=== PATIENT | female | born 1980 | race Two or more races ===

== ENCOUNTER 2023-09-14 02:40 | Emergency (ER) | payer MEDICAID ==
[~2023-09-14] VITALS: Ht 172.7 cm; Wt 85.0 kg
[2023-09-14] MEDS ORDERED: ketorolac trometh inj. 60 MG/2 ML VIAL IM ONE (03:40)
[2023-09-14] MEDS ORDERED: ondansetron 4mg rapidly disintigrating tab PO ONE (03:40)
[2023-09-14] MEDS ORDERED: HYDROcodone/acetaminophen 5mg/325mg tablet PO ONE (03:40)
[2023-09-14] MEDS ORDERED: orphenadrine citrate 60mg/2ml inj. IM ONE (03:40)
[2023-09-14] MEDS ORDERED: HYDR-3965 PO (03:42)
[2023-09-14] MEDS ORDERED: CYCL-1 PO (03:42)
[2023-09-14] MEDS ORDERED: IBUP-1984 PO (03:44)
[2023-09-14] MEDS ORDERED: ONDA8TAB13 PO (03:50)
[2023-09-14 04:40] VITALS: BP 175/90; PULSE 80; RESP 18; TEMP 98.6; O2SAT 97
== END 2023-09-14 04:41 | disposition home or self-care (01) ==
LOC: ER 02:40
DX: S39.012A Strain of muscle, fascia and tendon of lower back, initial encounter (principal); X58.XXXA Exposure to other specified factors, initial encounter; Y93.89 Activity, other specified; Y92.89 Other specified places as the place of occurrence of the external cause; Y99.8 Other external cause status
CPT/HCPCS: 96372; 99284; J1885; J2360

== ENCOUNTER → 2023-12-04 | Outpatient (CLI) | payer MEDICAID ==
[~2023-12-04] MED LIST: CYCL-1 PO; ONDA8TAB13 PO
== END | disposition home or self-care (01) ==
LOC: RAD 14:37
DX: N88.8 Other specified noninflammatory disorders of cervix uteri (principal); R10.2 Pelvic and perineal pain
CPT/HCPCS: 76856; 93976